=== PATIENT | female | born 1980 | race Caucasian/White ===

== ENCOUNTER → 2019-11-27 | Outpatient (CLI) | payer SELFPAY ==
[2017-08-01 11:54] VITALS: BMI 21.5
[2019-12-03 20:17] LABS: HPV Reflexed? YES, CHARGE PATIENT
== END | disposition home or self-care (01) ==
LOC: LABSPEC 11:03
PROVIDERS: Visit Provider Obstetrics & Gynecology
DX: Z12.4 Encounter for screening for malignant neoplasm of cervix (principal)
CPT/HCPCS: 87624; 88175; G0145

== ENCOUNTER 2020-11-06 08:21 | Day surgery (SDC) | payer SELFPAY ==
[2020-11-04 11:54] LABS: Hematocrit 38.6 % (37-47); Hemoglobin 12.7 g/dL (12.0-15.0); Mean Corp Hgb Conc 32.9 g/dL (32-36); Mean Corpuscular Hgb 31.7 pg (27.0-32.0); Mean Corpuscular Volume 96.3 fL (81-99); Mean Platelet Vol. 9.3 fl (6.2-12.0); Platelet Count 176 K/mm3 (150-450); RBC Distribution Width CV 13.1 % (11.6-14.6); RBC Distribution Width SD 46.6 fl (35.1-43.9); Red Blood Count 4.01 M/mm3 (4.2-5.4); White Blood Count 4.1 K/mm3 (4.4-11.0)
[2020-11-04 11:58] LABS: Prothrombin Time (Protime)PT. 12.5 SECONDS (11.7-14.9)
[2020-11-04 11:59] LABS: Partial Thromboplast Time 33.1 Seconds (24.1-36.2)
[2020-11-04 12:25] LABS: AST(SGOT) 21 U/L (15-37); Alanine Aminotransfer ALT/SGPT 33 U/L (13-56); Albumin, Serum 3.9 g/dL (3.2-5.0); Alkaline Phosphatase 50 U/L (45-117); Bilirubin, Direct 0.08 mg/dL (0.00-0.30); Globulin 3.5 g/dL (2.2-4.2); Protein, Total 7.4 g/dL (6.4-8.2)
--- NOTE | 2020-11-06 07:15 | HP.PCM.OB_ITS ---
History and Physical Date of Admission: 11/06/20 HISTORY OF PRESENT ILLNESS: On 11/04/2020, Poly Fair, a 40 year old female 3 0 1 0 3, presented for: Lap Bilateral Salpingectomy, removal of Paragard IUD. Desires permanent sterilization. Completed childbearing. Patient had Filrandy mejia previously, however had after this that ended with spontaneous . MEDICAL HISTORY: Denies ALLERGIES: NKA, No Known Drug Allergies, Latex, Rash and itching MEDICATIONS HISTORY; 1. ParaGard T 380A 380 square mm intrauterine device, due for removal by 11/16/2025 2. Fiber Laxative (psyllium) S/F powder, As Directed once daily 3. flaxseed 1,000 mg capsule, One pill by mouth once a day 4. Multiple Vitamin Essential tablet, One pill by mouth once a day PAST HISTORY: Breast/Ovarian/Colon Cancers - Denies Infections - chicken pox as a child Illnesses - no serious past illnesses Accidents - None History of Abnormal PAPS - Denies Hospitalizations - Childbirth and see surgery SURGICAL HISTORY: 1. [place] Te[place] 2. 07/30/2008 pp BTO, filfrankie roberto Mcdaniels M.D. sterilization request 3. 08/10/2018 (L) Leg Vein Surgery Dr. Jacobo MENSTRUAL HISTORY: LMP Known?- DefiniteAmount/Duration - 7 days, Regularity - Regular, Frequency - monthly days, LMP - 10/27/20, Age Onset Menarche - 13 PAST PREGNANCIES: Total Pregnancies - 4; Full Term Pregnancies - 3; Premature - 0; Abortions, Induced - 0; Abortions, Spontaneous - 1; Ectopics - 0; Multiple Births - 0; Living Children - 3 FAMILY HISTORY: Father - FH: Parkinson's disease; Paternal Grandparent - FH: Parkinson's disease; SOCIAL HISTORY: Alcohol Use - denies drinking Smoking - denies smoking Drugs - denies REVIEW OF SYSTEMS: GENERAL - Denies fever, or chills SKIN - Denies skin changes EYES - Denies visual changes EARS - Denies difficulty hearing NOSE - Denies nasal congestion or bleeding MOUTH - Denies sore throat or difficulty swallowing NECK - Denies pain or swelling RESPIRATORY - Denies shortness of breath or wheezing CARDIOVASCULAR - Denies palpitations or chest pain GASTROINTESTINAL - Denies nausea, vomiting, diarrhea, constipation GENITOURINARY - Denies dysuria, frequency of urination, incontinence of urine MUSCULOSKELETAL - Denies joint or muscle pain NEUROLOGICAL - Denies localized numbness or weakness PSYCHIATRIC - Denies depression or anxiety ENDOCRINE - Denies heat or cold intolerance, weight loss or gain HEMATO-IMMUNOLOGIC - Denies excessive bleeding with cuts BP- 112/62 Sitting, Right arm, regular cuff Temp- 98.3 Taken Orally Weight- 123.40 lbs Height- 61.50 inch BMI:22.99 CONSTITUTIONAL - NAD, well nourished, and well developed SKIN - No rash, lesions, or ulcers HEENT - Normocephalic, PERRLA, EOMI NECK - No nodes, no nuchal rigidity and thyroid normal size and texture LYMPH NODES - Palpation of lymph nodes in neck and groins within normal limits LUNGS - CTA x2 without wheezes, crackles or rales CARDIAC - Regular rate and rhythm without rubs, murmurs, or gallops ABDOMEN - Without hepatosplenomegaly, distention, masses, rebound, or guarding; normal bowel sounds; no hernias EXTREMITIES - No edema or calf tenderness NEUROLOGICAL - Cranial nerves II-XII grossly intact PSYCHIATRIC - A and O to time, place, person, mood and affect ASSESSMENT: PLAN BY DIAGNOSIS: 1. General Counseling On Initiation Of Other Contraceptive Measures Pt has had Filshie clips placed and then had with them which resulted in SAB. Desires salpingectomy. Discussed R/B/A of bilateral laparoscopic salpingectomy. Desires to have this done. Will remove IUD after completion of tubal. R/B/A discussed Risks include, but are not limited to: risk of bleeding to the point of transfusions, infections, injury to surrounding tissues (bowel/bladder), infection, ICU admission, VTE, risk of regret. Pt agreed and consent signed
[2020-11-06] MEDS: Lactated Ringers 1,000 ML 100 ML IV (08:40)
[2020-11-06 08:55] VITALS: BP 91/62; PULSE 55; RESP 16; TEMP 37; O2SAT 100; BMI 22.5
--- NOTE | 2020-11-06 10:05 | FALS_PTH ---
PATIENT: TYRA FAIR LOC: [facility] U#:[id number] AGE/SX: 40/F ROOM: RE11/06/[address]: Dr. Ainsley Fair DO : 1980 BED: DIS: 11/06/2020 SPEC #: [id number] RECD: 11/06/20 13:44 STATUS: ISAAC REBoni #: [id number] CLAUDE: 11/06/20 10:[address]: Ainsley Fair DEPT: SURGICAL PATHOLOGY RECD BY: Talia Mclaughlin ENTERED: 11/07/20 09:03 SP TYPE: FALL TUBES OTHR DR: Dr. jT Boston DO Tissues: Fallopian tube Procedures: Surgery Specimen Level II HEADER OPERATION: Laparoscopic salpingectomy, IUD removal PRE-OP DIAGNOSIS: Sterilization TISSUE SUBMITTED: Bilateral fallopian tubes MICROSCOPIC DIAGNOSIS Right and left fallopian tubes, bilateral salpingectomies: Two complete cross-sections of fallopian tubes. Benign epithelial paratubal cysts. Focal dystrophic microcalcifications. AM:fatimah 11/10/2020 MICROSCOPIC DESCRIPTION Slides are reviewed. GROSS DESCRIPTION Received in fixative is one container labeled with the patient's name and designated bilateral fallopian tubes. The specimen consists of pieces of fallopian tubes received in four fragments ranging in size from 2 to 5 cm in length and varying in diameter from 0.6 to 0.7 cm. Both fallopian tubes have normal fimbriated ends. No mass lesions are identified. Budget Coordinator sections are submitted in two cassettes as follows: 1 - one fallopian tube, 2 - the other fallopian tube. / AM:fatimah 11/07/20 TC:5 CPT: 74457 x2
--- NOTE | 2020-11-06 10:47 | SUR.PREOP ---
pt given update on surgery delay- warm blanket given. denies any other needs. family at bedside.
--- NOTE | 2020-11-06 11:52 | PCM.DC ---
Discharge Instructions Follow Up Care Test Results: Test results from this visit will be discussed in further detail at your follow-up appointment, if applicable. Discharge Plan Admission Primary Reason for Your Visit: Laparoscopic Tube removal and IUD removal Attending Provider: Ainsley Fair Primary Care Provider: Tj Boston Instructions Patient Instructions: After Laparoscopic Fallopian Tube Ligation Discharge Orders/Prescriptions Prescriptions: No Action Probiotic 3 billion cell Capsule 3,000 mmu cells PO PRN PRN (Reason: Digestion) RF: 0 omega 3,6,9 combination no.7 92 mg (43 mg-22 [id number]) Tablet,Chewable 1 mg PO DAILY RF: 0 Femagen 1 cap PO/SL DAILY RF: 0 Fiber Blend 1 packet PO/SL DAILY RF: 0 Trio Vitamin 1 packet PO/SL DAILY RF: 0 Referrals / Follow Up: Tj Boston DO [Primary Care Provider] -
--- NOTE | 2020-11-06 11:58 | PCM.DC ---
Discharge Instructions Diet Discharge Diet: No restrictions Activity Discharge Activity: Return to Normal Activity and May Shower May resume sexual activity in: 2 weeks Lifting Restrictions: No lifting over 25 pounds Dressing / Incision Call your doctor if your incision/area has: Continuous Slow Oozing, Sudden Increased Bleeding, Increased Redness and Foul Smelling Discharge Call your doctor if you observe: Fever of 101 or Higher, Inability to urinate, Shortness of breath, Dizziness, Swelling in the ankles and Chest pain Change Dressing in: do not change dressing Cleanse incision/area with: Soap & Water Follow Up Care Please Follow Up With: Ainsley Fair When: 2 weeks post op visit Test Results: Test results from this visit will be discussed in further detail at your follow-up appointment, if applicable. Discharge Plan Admission Primary Reason for Your Visit: Laparoscopic Tube removal and IUD removal Attending Provider: Ainsley Fiar Primary Care Provider: Tj Boston Instructions Patient Instructions: After Laparoscopic Fallopian Tube Ligation Discharge Orders/Prescriptions Prescriptions: New oxycodone 5 mg tablet 5 mg PO Q6H PRN (Reason: pain (scale score 7-10)) 3 Days Qty: 10 RF: 0 No Action Probiotic 3 billion cell Capsule 3,000 mmu cells PO PRN PRN (Reason: Digestion) RF: 0 omega 3,6,9 combination no.7 92 mg (43 mg-22 [id number]) Tablet,Chewable 1 mg PO DAILY RF: 0 Femagen 1 cap PO/SL DAILY RF: 0 Fiber Blend 1 packet PO/SL DAILY RF: 0 Trio Vitamin 1 packet PO/SL DAILY RF: 0 Referrals / Follow Up: Tj Boston DO [Primary Care Provider] - Disposition Disposition (needs filled in before D/C Order can be placed): Home, self care
--- NOTE | 2020-11-06 12:00 | PCM.OPRPT ---
Report of Operation Date of Procedure: 11/06/20 Pre-Operative Diagnosis: Desires permanent sterilization Post-Operative Diagnosis: Desires permanent sterilization Surgery/Procedure Performed:: Bilateral laparoscopic salpingectomy Description of Surgical Findings:: Normal-appearing external genitalia. IUD strings present at cervix. Minimal uterine descensus. Normal-appearing bilateral ovaries, uterus. Fallopian tubes with bilateral paratubal cysts, Filshie clips found 1 in posterior cul-de-sac second attached to adhesion on right side near tube. Type of Anesthesia: General Specimen's removed: Bilateral fallopian tubes. Estimated Blood Loss (mL): 5 cc Fluids Replaced: 500 cc Description of Procedure: Indications, risks and benefits: 40-year-old female with history of bilateral tubal ligation with Filshie clips. Patient had subsequent with SAB after tubal ligation. She then had ParaGard IUD placed. Patient desires bilateral salpingectomy and removal of IUD. All risk, benefits, alternatives were discussed with the patient. Risks include but are not limited to: Risk of bleeding to the point of transfusion, infection, injury to surrounding tissue including bowel or bladder potentially requiring prolonged Hidalgo catheter use, VTE, ICU admission. Patient aware and consented. Procedure: Patient taken to the operating room placed under general anesthesia. Patient placed in the dorsal lithotomy position and prepped and draped in the usual sterile fashion. Hidalgo catheter placed in bladder. Weighted speculum placed in posterior vagina and Prasad retractor used to visualize cervix. Anterior lip of the cervix grasped with single-tooth tenaculum. Cervix sequentially dilated and Sargis manipulator placed. Gloves changed and attention turned to the anterior abdominal wall. Infraumbilical incision made with scalpel. 5 mm trocar placed under direct visualization. Abdomen insufflated. Right and left lower quadrant incisions made and trochars placed. Inspection of abdomen with findings as above. Left fallopian tube grasped at the fimbriated end and LigaSure used to coagulated and cut fallopian tube. Distal end excised. Paratubal cyst noted and was unable to be removed through the trocar. Tube placed in the posterior cul-de-sac at this time. Proximal end of the tube was grasped and coagulated and cut using the LigaSure and excised, removed through trocar. Right fallopian tube grasped with the fimbriated and and LigaSure device used to coagulate and cut, excise. Paratubal cyst noted, paratubal cyst incised and drained clear fluid. Fallopian tube removed through trocar. Proximal end of the fallopian tube grasped and coagulated and cut using LigaSure, removed through the trocar. Remaining portion of left fallopian tube grasped and paratubal cyst incised, draining clear fluid. This portion of the tube was then removed for trocar. Filshie clip located in the posterior cul-de-sac was grasped and removed through the trocar under direct visualization. Right Filshie clip removed after incising adhesion, under direct visualization through trocar. Bilateral mesosalpinx hemostatic. Abdomen desufflated and trochars removed. Skin closed with subcuticular stitches and skin glue. Sargis manipulator removed from cervix, IUD removed. Tenaculum sites hemostatic. Hidalgo catheter removed: Urine output 400 cc clear urine. At the end of the procedure all needle, lap, sponge counts correct x3.
[2020-11-06 12:10] VITALS: BP 91/62; BP 97/67; PULSE 58; RESP 16; TEMP 36.8; O2SAT 100
[2020-11-06 12:15] VITALS: BP 91/62; BP 96/71; PULSE 58; RESP 16; O2SAT 100
[2020-11-06 12:35] VITALS: BP 91/62; BP 98/63; PULSE 44; RESP 16; TEMP 36.4; O2SAT 100
[2020-11-06] MEDS: Acetaminophen 325 MG Tablet 650 MG PO (13:05)
[2020-11-06 13:18] VITALS: BP 91/62
[2020-11-06 14:17] VITALS: BP 91/62; BP 99/59; PULSE 54; RESP 16; TEMP 36.4; O2SAT 100
== END 2020-11-06 14:20 | disposition home or self-care (01) ==
LOC: SDC 08:27 → AC 08:32
PROVIDERS: Anesthesiology; PCP Family Medicine; Referring Provider Student in an Organized Health Care Education/Training Program; Visit Provider Student in an Organized Health Care Education/Training Program
PROC: (CPT 58661; principal; 2020-11-06 09:50)
DX: Z30.2 Encounter for sterilization (principal); N83.8 Other noninflammatory disorders of ovary, fallopian tube and broad ligament; K21.9 Gastro-esophageal reflux disease without esophagitis; Z20.822 Contact with and (suspected) exposure to COVID-19
CPT/HCPCS: 00840; 58301; 58661; 80076; 85027; 85610; 85730; 86850; 86900; 86901; 87426; 88302; C9803; J7120; J2405

== ENCOUNTER → 2022-08-17 | Outpatient (CLI) | payer SELFPAY ==
[2022-08-17 11:43] LABS: Follicle Stimulating Hormone 4.9 mIU/mL; Free T3 2.3 pg/mL (2.18-3.98); Luteinizing Hormone 11.2 mIU/mL; Thyroid Stim Hormone (TSH) 3.33 uIU/mL (0.358-3.74)
[2022-08-25 15:33] LABS: HPV APTIMA, High Risk Positive (Negative)
== END | disposition home or self-care (01) ==
LOC: WOBLAB 10:50
PROVIDERS: PCP Family Medicine; Visit Provider Student in an Organized Health Care Education/Training Program
DX: N93.9 Abnormal uterine and vaginal bleeding, unspecified (principal); Z12.4 Encounter for screening for malignant neoplasm of cervix
CPT/HCPCS: 36415; 83001; 83002; 84439; 84443; 84481; 87624; 88175; G0145

== ENCOUNTER → 2022-09-21 | Outpatient (CLI) | payer SELFPAY ==
--- NOTE | 2022-09-21 | IMM_PTH ---
PATIENT: TYRA FAIR LOC: [facility] U#:[id number] AGE/SX: 42/F ROOM: RE09/21/[address]: Dr. Ainsley Fair DO : 1980 BED: DIS: 09/21/2022 SPEC #: [id number] RECD: 09/23/22 14:52 STATUS: ISAAC REQ #: [id number] CLAUDE: 09/21/22 00:[address]: Ainsley Fair DEPT: IMMUNOHISTOCHEMISTRY RECD BY: Nataly Zhu ENTERED: 09/23/22 14:53 SP TYPE: IMMUNO OTHR DR: Dr. Tj Boston DO Tissues: A - Uterine cervix, NOS Procedures: p16 (initial) KI-67 (add) PHYSICIAN & INSTITUTION [place] [phone] SPECIMEN INFORMATION: Tissue Source: A - Cervix Clinical Info: Abnormal pap low risk HPV Specimen Number: [id number] CPT code: 15271, 81453 METHODOLOGY: Deparaffinized sections of prefer/formalin-fixed tissue or PAP/DQ stained slides are incubated with monoclonal/polyclonal antibodies/oligonucleotide probes. Localization is made via biotin free immunoperoxidase method. Appropriate controls are performed and reacted as expected. Results on target cell population are indicated in the following table: RESULTS: ANTIBODY / CLONE RESULT Block A P16 (E6H4) negative Ki-67 (30-9) positive, low These tests were developed and their performance characteristics determined by [facility]. They may not have been cleared or approved by the [place]. Food and Drug Administration. The FDA has determined that such clearance or approval is not necessary. The above immunohistochemical/dualISH markers are ordered and reviewed by the Pathologist. INTERPRETATION: A. Cervix, biopsy: Focal minimal changes suspicious for HPV cytopathic effects. SJ:fatimah 09/24/2022
--- NOTE | 2022-09-21 | CER_PTH ---
PATIENT: TYRA CAMREON LOC: [facility] #:[id number] AGE/SX: 42/F ROOM: RE09/21/[address]: Dr. Ainsley Cameron DO : 1980 BED: DIS: 09/21/2022 SPEC #: [id number] RECD: 09/21/22 15:46 STATUS: ISAAC REBoni #: [id number] CLAUDE: 09/21/22 00:[address]: Ainsley Cameron DEPT: SURGICAL PATHOLOGY RECD BY: Vinayak Olivier ENTERED: 09/22/22 08:32 SP TYPE: CERV OTHR DR: Dr. Tj Boston DO Tissues: A - Uterine cervix, NOS B - Endocervical Procedures: Surgery Specimen Level IV HEADER OPERATION: Colposcopy / ECC PRE-OP DIAGNOSIS: Abnormal pap low risk HPV TISSUE SUBMITTED: A ? Colposcopy, B - ECC MICROSCOPIC DIAGNOSIS A. Cervix, biopsy: Focal minimal changes suspicious HPV cytopathic effects. Acute and chronic inflammation. See comment. B. Endocervical curettings: Scant fragments of benign endocervical epithelium, blood and mucous, negative for dysplasia. See comment. ANGELINA:fatimah 09/23/2022 COMMENT A. Immunohistochemistry ([id number]) for surrogate HPV marker (p16) supports the above diagnosis. B. The specimen predominantly consists of blood and mucous. MICROSCOPIC DESCRIPTION Slides are reviewed. GROSS DESCRIPTION A - Received in fixative is one container labeled with the patient's name and designated cervix biopsy. The specimen consists of multiple irregular fragments of light stahl soft tissue that in aggregate measure 2.0 x 1.0 x 0.1 cm. The specimen is totally submitted in one cassette. B - Received in fixative is one container labeled with the patient's name and designated ECC. The specimen consists of multiple minute fragments of stahl tissue that in aggregate measure 1.0 x 0.5 x <0.1 cm. The specimen is totally submitted in one cassette. / AM:fatimah 09/22/2022 TC:5 CPT: 20018 x2
== END | disposition home or self-care (01) ==
LOC: LABSPEC 15:53
PROVIDERS: PCP Family Medicine; Referring Provider Student in an Organized Health Care Education/Training Program; Visit Provider Student in an Organized Health Care Education/Training Program
DX: R87.820 Cervical low risk human papillomavirus (HPV) DNA test positive (principal)
CPT/HCPCS: 88305; 88341; 88342